=== PATIENT | female | born 1980 | race Caucasian/White ===

== ENCOUNTER 2017-12-05 16:14 | Emergency (ER) | payer BC ==
[~2017-12-05] VITALS: Ht 157.5 cm; Wt 85.4 kg
[~2017-12-05 16:14] MED LIST: AMITRIPTYLINE H10 MG PO; DEPAKOTE500 MG PO; DIAZEPAM5 MG PO; FROVA2.5 MG PO; JUNEL FE 1-201 EACH PO; MIRALAX17 GM PO; MOTRIN800 MG PO; REGLAN10 MG PO; TOPAMAX100 MG PO; TOPAMAX15 MG PO; TOPAMAX200 MG PO; TRAMADOL HCL50 MG PO; VIBRAMYCIN100 MG PO; [UNRECOGNIZED DRUG - SUPPLY] MC
[2017-12-05 17:00] LABS: HEMATOCRIT 39.9 % (36.0-46.0); HEMOGLOBIN 13.3 G/DL (11.9-15.5); MCH 31.4 PG (29.0-34.0); MCHC 33.3 G/DL (30.0-36.0); MCV 94.1 FL (83-99); PLATELET COUNT 326 K/uL (156-360); RBC DIS.WIDTH-CV 12.2 % (11.8-14.6); RBC DIS.WIDTH-SD 42.8 % (39-53); RED BLOOD COUNT 4.24 M/uL (3.80-5.20); WHITE BLOOD COUNT 6.6 K/uL (4.1-10.2)
[2017-12-05 17:08] LABS: CHLORIDE 112 mEq/L (99-109); POTASSIUM 4.1 mEq/L (3.7-5.4); SODIUM 143 mEq/L (136-147)
[2017-12-05 17:09] LABS: GLUCOSE 124 mg/dL (70-99)
[2017-12-05 17:13] LABS: CREATININE 0.8 mg/dL (0.6-1.3); GFR ESTIMATE (CALCULATED) > 59 mL/min/
[2017-12-05 17:14] LABS: UREA NITROGEN (BUN) 10 mg/dL (9-23)
[2017-12-05 17:21] LABS: TROP-I INTERPRETATION NEGATIVE; TROPONIN-I < 0.01 ng/mL (0.0-0.30)
[2017-12-05 19:31] LABS: ALBUMIN 4.2 g/dL (3.2-4.8)
[2017-12-05 19:33] LABS: D-DIMER ELISA < 150.00 ng/mLDDU (<230)
[2017-12-05 19:34] LABS: TOTAL PROTEIN 7.2 g/dL (6.4-8.3)
[2017-12-05 19:35] LABS: TOTAL BILIRUBIN 0.3 mg/dL (0.0-1.0)
[2017-12-05 19:36] LABS: ALKALINE PHOSPHATASE 60 IU/L (3-129)
[2017-12-05 19:40] LABS: ALT (GPT) 46 IU/L (3-49); AST (GOT) 29 IU/L (2-34); DIRECT BILIRUBIN 0.1 mg/dL (0.0-0.3); LIPASE 55 U/L (1.0-51.0)
[2017-12-05 20:01] LABS: QUANTITATIVE HCG < 4.0 MIU/ML
[2017-12-05 20:32] LABS: TROP-I INTERPRETATION NEGATIVE; TROPONIN-I < 0.01 ng/mL (0.0-0.30)
[2017-12-05 21:41] VITALS: BP 126/80
== END 2017-12-05 21:43 | disposition home or self-care (01) ==
LOC: EME 16:14
PROVIDERS: Physician Assistant
DX: R07.89 Other chest pain (principal); J45.909 Unspecified asthma, uncomplicated; Z88.0 Allergy status to penicillin; Z88.2 Allergy status to sulfonamides; Z91.040 Latex allergy status
CPT/HCPCS: 71046; 80048; 80076; 83690; 84484; 84702; 85027; 85379; 93005; 99281; 99285